=== PATIENT | male | born 1935 | race Caucasian/White ===

== ENCOUNTER 2023-04-25 12:53 | Outpatient (RCR) | payer MEDICARE, OTHER, SELFPAY ==
--- NOTE | 2023-04-25 16:06 | PT.OPEX ---
PT [facility] PT [facility] Out[facility] Eval Start: 04/25/23 15:36 Freq: Status: Active Protocol: Document 04/25/23 15:47 HAILY (Rec: 04/25/23 16:04 HAILY [id number]) E-signed By Marilou Ureña DPT Physical Therapy Outpatient Evaluation Insurance Information Recert Due Date 07/24/23 Insurance Name Medicare B Medical Diagnosis L hip OA L YURI 05/10/23 Treating Diagnosis L hip pain, impaired L hip ROM , impaired L hip mobility/ strength, limping/antalgic gait, limited tolerance for extended standing/walking Subjective Subjective Patient reports chronic L hip pain leading up to L YURI scheduled for 05/10/23. He reports having OP PT in [place] leading up to his surgery. He is doing a HEP, trying to stay active. He is not using an AD. Patient has FWW, 4ww, canes available at home to use after surgery. Spouse is present this session . Patient assists her at home with socks/shoes. Spouse uses a cane for ambulation. She is able to provide limited assistance for patient after surgery. L hip pain range 0- 10/10. Spouse asking about home health services after surgery. Date of Last Physician Visit 03/23/23 Date of Surgery (If applicable) 05/10/23 Current Work Status Retired Precautions Treatment Precautions/Contraindications heart condition, HTN, pacemaker, OA Assessment Assessment/Impression Patient is an 87 year old male with chronic L hip pain, impaired L hip ROM, impaired L hip mobility/strength, limping/antalgic gait, limited tolerance for extended standing/walking leading up to L YURI scheduled for 05/10/23. Patient seen in PT today for pre-op session to provide education/information on upcoming YURI surgery, safety information/HO, equipment instruction including use of FWW, and instruction in YURI exercises. Handouts issued for exercises, patient to perform them leading up to surgery. He has been doing a HEP from his current OP PT course of care in [place] leading up to his L YURI surgery. Reviewed PT/OT plan during hospital stay and patient is scheduled for OP PT in [place] post op. Patient is not using an AD. He has a FWW, 4ww, and canes available at home to use after surgery. No stairs, level entry to home. Chair lifts on the stairs up to 2nd floor and down to lower level. Bedroom is on the 2nd floor and patient can mostly stay on that level. Walk in shower and shower chair are in the lower level. Patient provides some assistance to spouse with socks/shoes. Spouse only able to provide limited assistance after surgery. Spouse asking about home health services for after surgery. Reviewed with patient/spouse that this would be based on how he is doing after surgery as certain criteria need to be met for home health services to be covered. Discussed pay for home services or having family /friends assist as needed. Recommended they try to line up family/friends for the first couple of nights to have a plan in place leading up to surgery. Patient seen in this clinic for pre-op eval only. He will return to OP PT in [place] for post op YURI rehab. No further PT scheduled at this clinic at this time. Plan of Care Rehabilitation Potential Good Physical Therapy Goals 1. Patient will be educated in YURI pre/post-op safety, mobility, and exercises with HOs provided within one visit with patient scheduled for OP PT in [place] after L YURI surgery on 05/10/23. Coordination/Communication With Referral Source Treatment Plan/Direct Interventions Therapeutic Exercises Frequency/Duration one time YURI pre-op session Patient Will Be Discharged From Therapy Completion of LTG(s),Skills Plateau,Independent w/HEP, Independently Progressing Evaluation Billing Untimed Code Treatment Minutes 36 Complexity Low Certification Information Initial Certification Date 04/25/23 Ending Certification Date 07/24/23 Provider Signature Shows Agreement With POC & Medical Necessity Physician Signature & Date Requested Please Sign/Date Here Physician Comment/Change : Physician NPI Number #
== END 2023-08-23 23:59 | disposition home or self-care (01) ==
PROVIDERS: PCP Family Medicine; Visit Provider Orthopaedic Surgery
DX: M16.12 Unilateral primary osteoarthritis, left hip (principal); Z96.642 Presence of left artificial hip joint; M25.552 Pain in left hip; R26.89 Other abnormalities of gait and mobility; Z74.09 Other reduced mobility; R29.898 Other symptoms and signs involving the musculoskeletal system; Z51.89 Encounter for other specified aftercare
CPT/HCPCS: 97161

== ENCOUNTER 2023-05-08 11:53 | Outpatient (CLI) | payer MEDICARE, OTHER, SELFPAY | END 2023-05-08 11:54 | disposition home or self-care (01) | LOC: LAB 11:54 | PROVIDERS: PCP Family Medicine; Visit Provider Physician Assistant | DX: Z01.83 Encounter for blood typing (principal) | CPT/HCPCS: 36415; 86850; 86900; 86901 ==

== ENCOUNTER 2023-05-10 08:24 | Day surgery (SDC) | payer MEDICARE, OTHER, SELFPAY ==
[2023-05-10] VITALS (24 sets, daily range): BP systolic 107–139; BP diastolic 62–94; PULSE 60–99; RESP 14–18; TEMP 35.7–36.9; O2SAT 92–100; BMI 31.0
[2023-05-10] MEDS: LACTATED RINGERS 1000 ML 1,000 ML 100 ML IV ×2 (08:45→12:55)
[2023-05-10] MEDS: ACETAMINOPHEN 500 MG TABLET 1000 MG PO ×3 (09:36→21:12)
[2023-05-10] MEDS: CELECOXIB 200 MG CAPSULE PO (09:36)
[2023-05-10] MEDS: SODIUM CHLORIDE 0.9 % (FLUSH) 10 ML SYRINGE IVF (09:37)
[2023-05-10] MEDS: OXYCODONE (CR) 10 MG TAB.ER.12H PO (09:37)
--- NOTE | 2023-05-10 09:39 | SUR.PREOP ---
TIME?OUT:?0945 PT/RN/MDA?VERIFICATION?OF?SURGICAL?SITE Left Hip,?PROCEDURE Nerve Block,?AND?CONSENT OBTAINED?PRIOR?TO?INVASIVE?PROCEDURE.
[2023-05-10] MEDS: fentaNYL 100 MCG/2 ML inj IVP (09:46)
[2023-05-10] MEDS: MIDAZOLAM HCL 1 MG/ML inj IVP (09:47)
--- NOTE | 2023-05-10 10:15 | XR_ITS ---
Patient: RA TELLO Facility:?[facility] Patient ID:?[id number] Site Patient ID:?[id number]. Site :?[id number] Study:?XRay-Hip Left 1V-05/10/2023 12:01:58 PM Ordering Physician:?DR. SCHMITZ Final Report: Indication: Hip replacement surgery Technique: AP hip fluoroscopic images. Fluoroscopy time 58.7 seconds. Findings/Impression: Hardware from a left total hip arthroplasty is in satisfactory position. Dictated by Tong Werner MD @ 05/10/2023 12:46:37 PM Signed by:?Tong Werner MD @05/10/2023 12:46:37 PM (Electronic Signature)
[2023-05-10] MEDS: CEFAZOLIN 2 GM INJ IVP (10:37)
--- NOTE | 2023-05-10 11:51 | XR_ITS ---
Patient: RA TELLO Facility:?[facility] Patient ID:?[id number] Site Patient ID:?[id number]. Site :?[id number] Study:?XRay-Hip Left 2V-05/10/2023 1:03:36 PM Ordering Physician:?DR. SCHMITZ Final Report: INDICATION: Postop left hip. TECHNIQUE: AP pelvis and lateral left hip. FINDINGS: New left YURI. Components appear well seated. Dictated by Tk Lassiter MD @ 05/11/2023 8:08:00 AM Signed by:?Tk Lassiter MD @05/11/2023 8:08:00 AM (Electronic Signature)
--- NOTE | 2023-05-10 11:52 | PM.ORPRC ---
Procedure Note Date of procedure: 05/10/23 Procedure: PREOPERATIVE DIAGNOSIS: Left hip osteoarthritis POSTOPERATIVE DIAGNOSIS: Left hip osteoarthritis NAME OF OPERATION: Left total hip arthroplasty SURGEON: Kenny Watkins MD COMMERCIAL ANNOUNCER: Sunitha Leggett PA-C, SULTANA Koenig IMPLANTS: 1. [employer] Hum[place] # 52 sector ingrowth cup 2. 36 x 52 neutral polyethylene 3. Actis # 8 standard collared ingrowth stem 4. 36 + 1.5 cobalt chrome femoral head ANESTHESIA: General ESTIMATED BLOOD LOSS: 300 cc COMPLICATIONS: None SPECIMENS: None DRAINS: None PREOPERATIVE ANTIBIOTICS: Ancef 2 grams INDICATIONS: The patient is a 87-year-old with a longstanding history of severe, unrelenting left hip pain secondary to end-stage left hip osteoarthritis. Despite appropriate nonoperative management, including activity modification, use of an assist device, anti-inflammatories, [id number] pain medication, physical therapy and injections, they continue to have pain and disability. Operative intervention was offered. The risks, benefits and expected outcomes were discussed in detail. These included but were not limited to: Infection, bleeding, injury to blood vessel or nerve, venous thromboembolism. All questions were answered to their satisfaction. Use of an orthodontist assistant was necessary throughout the case for patient positioning and safety, soft tissue retraction and closure. PROCEDURE: The patient was placed supine on the [place] table. General anesthesia was administered. The orthodontist assistant made sure the patient was properly positioned. The left hip was prepped and draped in the usual sterile fashion. The image intensifier was brought in for a perfect AP pelvis and a perfect double tear drop AP view of each hip which were used for intraoperative templating with our fluoroscopic guide. An oblique incision was made 3 cm distal and 3 cm lateral to the anterior superior iliac spine. The orthodontist assistant retracted the soft tissues to protect them. Subcutaneous dissection was taken with electrocautery to the superficial fascia. The fascia was divided in line with the incision. Blunt dissection was carried medially to the tensor fascia augustus and sartorius interval. Deep dissection was carried with electrocautery. The circumflex vessels were cauterized and divided. The capsule was exposed and then divided in a T-fashion, tagged with #1 Ethibond sutures. Retractors were placed in the joint, held by the orthodontist assistant. The corkscrew was placed in the femoral head. The neck cut was made in the subcapital region. We made a second neck cut more distal. The napkin ring of bone was removed. The femoral head was removed intact. Acetabular retractors were placed, held by the orthodontist assistant. The labrum was sharply debrided. The capsule was released. The 43 mm reamer was used to the true medial wall. We then enlarged in 2 mm increments using the image intensifier for our reamer placement. We impacted the cup which had excellent purchase. We placed the polyethylene. Attention was then turned to the proximal femur. The limb was placed in 140 degrees of external rotation, maximum extension and adduction. A significant amount of time was spent releasing the capsule to allow us to deliver the femur into the wound and complete the femoral side safely. Retractors were held by the orthodontist assistant throughout the femoral preparation. The box lining machine feeder and canal finder were used. Broaches were used to a stable size. The calcar reamer was used. Trial components were placed. The hip was reduced and was found to be stable with appropriate soft tissue tension. Length and offset had been nicely restored using the image intensifier and our fluoroscopic guide. Trial components were removed. The stem was impacted. We placed the femoral head. Again, the hip was reduced and was found to be stable with appropriate soft tissue tension. Length and offset had been nicely restored. The orthodontist assistant did a three minute dilute Betadine solution soak. The orthodontist assistant irrigated the wound with 3 liters of normal saline via pulse lavage. The orthodontist assistant repaired the anterior capsule with a #1 Vicryl and our previously placed Ethibond sutures. The orthodontist assistant closed the fascia over the tensor fascia augustus with a #1 PDO Stratafix, subcutaneous tissues with 2-0 Vicryl, skin with a running 3-0 Stratafix and glue. A dry dressing was applied by the orthodontist assistant. Sponge and needle counts were correct x 2. The patient tolerated the procedure well; there were no apparent complications. They were awakened and extubated in the operating room, sent to the Post-Anesthesia Care Unit in satisfactory condition. PLAN: 1. The patient will be mobilized with physical therapy, weight-bearing as tolerates 2. Xarelto x 5 days then aspirin x 30 days will be used for DVT prophylaxis 3. The patient will be discharged once medically appropriate
--- NOTE | 2023-05-10 12:01 | P.NB_ITS ---
Nerve Block Nerve Block Time Seen by Provider: 09:45 Date Seen: 05/10/23 Type of block requested by surgeon for post-operative analgesia: FLORIAN/LFCN Side: left Time out performed: Yes Verification of patient name: Yes Verification of date of : Yes Site marking: site marked Name of person performing procedure: Vishal Continuous monitoring Was continuous monitoring of O2 sat, B/P, environmental monitoring specialist, recorded every 15 minutes?: Yes Procedure Checklist: sterile prep, needles and gloves Ultrasound guided. Images saved: Yes Medications given in 5ml increments after negative aspiration: Ropivicaine %: 0.5 mL: 30 Needle gauge: 20 Decadron (mg): 10 Precedex (mcg): 25 Patient tolerated procedure well: Yes Additional comments: Needle noted below psoas tendon needle noted adjacent to LFCN Block Charges Block Charge (with Pro Fee): Other Periph Nerve Block Use of Ultrasound Machine for Block: Yes- US Guidance/pain block
--- NOTE | 2023-05-10 12:01 | W.ANESCHARGE ---
Anesthesia Charges Start Date/Time Anesthesia Start Date: 05/10/23 Anesthesia Start Time: 10:24 Stop Date/Time Anesthesia Stop Date: 05/10/23 Anesthesia Stop Time: 12:41 Summary Extremes of Age - Over 70 or under 1: MDA
--- NOTE | 2023-05-10 12:54 | W.ANESCHARGE ---
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
--- NOTE | 2023-05-10 13:12 | SUR.PHASEI ---
Imaging back at 1312 to take more images.
--- NOTE | 2023-05-10 15:11 | P.IMCN_ITS ---
Date of Consult Consult date: 05/10/23 Requesting Physician: Orthopedics Primary Care Provider: Jah Lopes MD Consult Narrative Reason for consult: Medical management of comorbidities Narrative: Ede Marin is a 87 year old male who presented to the hospital today for an elective LTHA with Dr. Watkins. There were no surgical or anesthetic complications noted during procedure. Patient's H&P reviewed, PCP is Dr. Lopes in [place]. Past medical history significant for: CAD s/p PCI in 2018, BPH, pacemaker placement. History of blood clots: No Postoperative plan: Home with (Currently at [facility]) with help from 4 adult children who live nearby. 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 ?H34.232 - Retinal artery branch occlusion, left eye (ICD-10) Disc displacement, lumbar ?M51.26 - Other intervertebral disc displacement, lumbar region (ICD-10) Colonic polyp ?K63.5 - Polyp of colon (ICD-10) Spinal stenosis of lumbar region ?M48.061 - Spinal stenosis, lumbar region without neurogenic claudication (ICD-10) Surgical History (Updated 05/10/23 @ 16:06 by Erin Grayson MD) History of left hip replacement ?Z96.642 - Presence of left artificial hip joint (ICD-10) History of angioplasty ?Z98.62 - Peripheral vascular angioplasty status (ICD-10) History of heart artery stent (1995) ?Z95.5 - Presence of coronary angioplasty implant and graft (ICD-10) Pacemaker (~2012) ?Z95.0 - Presence of cardiac pacemaker (ICD-10) Social History (Updated 03/23/23 @ 10:01 by Teetee Boone ~ FINANCIAL INSTITUTION BRANCH MANAGER, FINANCIAL INSTITUTION BRANCH MANAGER) Narrative: -Mary What is your current living situation?: I presently have a place to live In the past 12 months, utilities in danger of being shut off: no In past 12 months, lack of transportation kept you from medical appts, meetings, work, or getting things needed for daily living: no In the past 12 mos, have been you worried that your food would run out before you had money to buy more?: never true In the past 12 mos, the food you bought just didn't last and you didn't have money to buy more?: never true Smoking Status: Never smoker Do you use any of these nicotine containing products: None Second hand tobacco smoke exposure: No How often do you have a drink containing alcohol: monthly or less How many standard drinks containing alcohol do you have on a typical day: 3 or 4 AUDIT-C Alcohol total score: 2 Non-prescribed substance use: denies use Caffeine: No How often does anyone, including family, friends and others, physically hurt you : never How often does anyone, including family, friends and others, insult or talk down to you: never How often does anyone, including family, friends and others, threaten you with harm: never How often does anyone, including family, friends and others, scream or curse at you: never Meds Home Medications and Allergies Home Medications Medication Instructions Recorded Confirmed Type acetaminophen 325 mg tablet 650 mg PO Q4-6H PRN 03/23/23 05/10/23 History (Tylenol) aspirin 81 mg tablet,delayed 81 mg PO DAILY atrial fibrillation 03/23/23 05/10/23 History release calcium carb 300 mg-D3 20 mcg-mag 1 tab PO DAILY 03/23/23 05/10/23 History 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.5 ff-iets-zerf tablet clopidogrel 75 mg tablet 75 mg PO DAILY 03/23/23 05/10/23 History comp.stocking,knee,long,medium 03/23/23 03/23/23 History cyanocobalamin (vitamin B-12) 1,000 mcg PO DAILY 03/23/23 05/10/23 History 1,000 mcg tablet (Vitamin B-12) fluticasone propionate 50 2 spray intranasal DAILY 03/23/23 05/10/23 History mcg/actuation nasal spray,suspension losartan 25 mg tablet 25 mg PO DAILY 03/23/23 05/10/23 History metoprolol tartrate 25 mg tablet 25 mg PO BID 03/23/23 05/10/23 History nitroglycerin 0.4 mg sublingual 0.4 mg sublingual ONCE PRN CAD in 03/23/23/04/23 History tablet [place] artery simvastatin 40 mg tablet 40 mg PO HS 03/23/23 05/10/23 History tamsulosin 0.4 mg capsule 0.4 mg PO DAILY 03/23/23 05/10/23 History triamcinolone acetonide 0.1 % 1 applic topical TID 03/23/23 05/10/23 History topical cream glucosamine 750 mg-MSM 60 1 tab PO DAILY 05/10/23 05/10/23 History mg-chondroit 150 mg-hyaluron ac 1 mg tablet (glucosamine-chondroitin) lysine 500 mg tablet 500 mg PO DAILY 05/10/23 05/10/23 History Allergies Allergy/AdvReac Type Severity Reaction Status Date / Time No Known Drug Allergies Allergy Verified 05/10/23 08:58 Exam Narrative: Exam Narrative: GEN: Alert and oriented, sitting comfortably in bedside chair HEENT: EOMIs bilaterally, no scleral icterus CV: RRR, No concerning murmurs R: LCTA bilaterally without concerning wheezing, rales, or rhonchi Ext: wearing Zan Hose on BLEs Skin: No concerning skin lesions or rashes on exposed skin Neuro: Nonfocal Psych: Appropriate Const: Vital Signs, click to edit/add: Vital Signs - 24 hr 05/10/23 09:12 05/10/23 09:45 05/10/23 09:50 Temperature 97.8 F Pulse Rate 61 60 60 Pulse Rate [Pulse Oximeter] Respiratory Rate 16 16 16 Blood Pressure 136/86 137/85 117/71 Blood Pressure [Ri ght Arm] Pulse Oximetry 96 98 96 Oxygen Delivery Me thod Room Air Nasal Cannula Nasal Cannula Oxygen Flow Rate 2 2 05/10/23 09:55 05/10/23 12:37 05/10/23 12:40 Temperature 97.0 F L Pulse Rate 60 60 60 Pulse Rate [Pulse Oximeter] Respiratory Rate 16 14 14 Blood Pressure 107/70 128/76 115/69 Blood Pressure [Ri ght Arm] Pulse Oximetry 96 97 92 Oxygen Delivery Me thod Nasal Cannula Room Air Blow By Oxygen Flow Rate 2 05/10/23 12:45 05/10/23 12:50 05/10/23 12:55 Temperature Pulse Rate 60 60 60 Pulse Rate [Pulse Oximeter] Respiratory Rate 14 14 14 Blood Pressure 125/77 135/79 136/82 Blood Pressure [Ri ght Arm] Pulse Oximetry 100 98 97 Oxygen Delivery Me thod Blow By Room Air Room Air Oxygen Flow Rate 10 05/10/23 13:00 05/10/23 13:05 05/10/23 13:10 Temperature 97.1 F L Pulse Rate 60 60 60 Pulse Rate [Pulse Oximeter] Respiratory Rate 14 14 14 Blood Pressure 128/77 129/84 134/76 Blood Pressure [Ri ght Arm] Pulse Oximetry 98 98 97 Oxygen Delivery Me thod Room Air Room Air Room Air Oxygen Flow Rate 05/10/23 13:22 05/10/23 13:22 05/10/23 13:35 Temperature 96.9 F L 96.9 F L 96.9 F L Pulse Rate 60 99 Pulse Rate [Pulse Oximeter] 60 Respiratory Rate 16 16 16 Blood Pressure 121/79 136/94 H Blood Pressure [Ri ght Arm] 121/79 Pulse Oximetry 98 92 92 Oxygen Delivery Me thod Room Air Room Air Oxygen Flow Rate 10 05/10/23 13:45 05/10/23 14:00 Temperature 96.4 F L 96.2 F L Pulse Rate 62 60 Pulse Rate [Pulse Oximeter] Respiratory Rate 16 16 Blood Pressure 134/80 135/80 Blood Pressure [Ri ght Arm] Pulse Oximetry 94 94 Oxygen Delivery Me thod Room Air Room Air Oxygen Flow Rate 10 Assessment and Plan Assessment and plan (1) History of left hip replacement: Problem comment: - 05/10/23Roland Status: Acute Plan - pain management and prophylaxis (Xarelto x5 days, then back to ASA/Plavix) per orthopedic surgery team - continue home medications for comorbidities - anticipate routine postoperative course - daughter updated at bedside, questions answered
[2023-05-10] MEDS: CEFAZOLIN 2 GM in 0.9 % SODIUM CHLORIDE Mini-bag 100 ML IVPB (16:12)
--- NOTE | 2023-05-10 19:40 | PC.NURSE ---
End of Shift ([id number]): Patient pleasant and cooperative. Afebrile. Dressing to left hip C/D/I. CMS intact. Denies pain. Up to chair and bathroom with 1 assist, walker and gait belt. Tolerating regular diet with no nausea.
[2023-05-10] MEDS: SENNOSIDES 1 TAB TABLET 2 TAB PO (21:12)
[2023-05-11] MEDS: OXYCODONE 5 MG TABLET PO ×3 (00:09→10:21)
[2023-05-11] MEDS: CEFAZOLIN 2 GM in 0.9 % SODIUM CHLORIDE Mini-bag 100 ML IVPB (00:10)
[2023-05-11 03:23] VITALS: BP 119/60; PULSE 60; RESP 16; TEMP 36.7; O2SAT 94
[2023-05-11] MEDS: ACETAMINOPHEN 500 MG TABLET 1000 MG PO ×2 (03:27→09:38)
[2023-05-11 06:24] LABS: Basophils Percent Auto 0.1 % (0.0-3.0); Hematocrit 42.2 % (37.0-53.0); Immature Granulocytes Pct Auto 0.3 %; Lymphocytes Percent Auto 4.7 % (20-44); Mean Corpuscular HGB Conc 33 gm/dL (32-36); Mean Corpuscular Hemoglobin 31 pg (26-34); Mean Corpuscular Volume 93 fL (80-100); Monocytes Percent Auto 9.9 % (0.0-11.0); Platelet Count* 171 K/uL (140-440); RDW Coefficient of Variation % 13.5 % (11.5-15.5); Red Blood Count 4.54 m/uL (4.30-5.90); White Blood Count* 12.77 K/uL (4.50-11.00)
--- NOTE | 2023-05-11 06:25 | PC.NURSE ---
End of shift [id number]: A&O pleasant and cooperative. VSS w/ sats >90% on RA. PRN oxycodone given x2 to help manage pain. Pt reported relief. CMS intact. Dressing to hip c/d/i. Up with SBA walker and gait belt. Tolerating diet. Denies n/v. ? ?
[2023-05-11 06:27] LABS: Slide Review Reflex No
[2023-05-11 06:35] LABS: Potassium* 4.7 mmol/L (3.6-5.1); Sodium* 135 mmol/L (135-149)
[2023-05-11 06:38] LABS: Creatinine* 0.7 mg/dL (0.5-1.5); Estimated Glomerular Filt Rate 90 ml/min
[2023-05-11 06:39] LABS: Blood Urea Nitrogen* 20 mg/dL (7-30)
[2023-05-11 07:34] VITALS: BP 127/71; PULSE 61; RESP 12; TEMP 36.6; O2SAT 93
[2023-05-11] MEDS: SENNOSIDES 1 TAB TABLET 2 TAB PO (08:30)
[2023-05-11] MEDS: RIVAROXABAN 10 MG TABLET PO (08:30)
--- NOTE | 2023-05-11 11:38 | PC.NURSE ---
Discharge: Patient pleasant and cooperative. Patient vitally stable, lungs clear, BS WNL, IV removed, catheter intact. Patient rates left hip pain 1-5/10, oxy 5 mg given once, dressing C/D/I. Patient SBA/walker. Patient tolerating regular and urinating well. Patient signed belongings sheet and discharge form. Patient had no further questions regarding discharge education. Patient left the floor by wheelchair to home at 1136.
== END 2023-05-11 11:36 | disposition home or self-care (01) ==
LOC: OR 08:25 → MEDSURG 08:28
PROVIDERS: PCP Family Medicine; Visit Provider Orthopaedic Surgery
PROC: (CPT 27130; principal; 2023-05-10 10:15)
DX: M16.12 Unilateral primary osteoarthritis, left hip (principal); G89.18 Other acute postprocedural pain; N40.0 Benign prostatic hyperplasia without lower urinary tract symptoms; Z95.0 Presence of cardiac pacemaker; I25.10 Atherosclerotic heart disease of native coronary artery without angina pectoris; I10 Essential (primary) hypertension; E78.5 Hyperlipidemia, unspecified; I49.5 Sick sinus syndrome
CPT/HCPCS: 27130; 01214; 36415; 64450; 73501; 76000; 76942; 82565; 84132; 84295; 84520; 85025; 86850; 86900; 86901; 97110; 97116; 97161; 97165; 97530; 97535; 99100; A9270; C1776; J0330; J0690; J1100; J1170; J2250; J2371; J2405; J2704; J2710; J2795; J3010; J7120